=== PATIENT | male | born 1955 | race Caucasian/White ===

== ENCOUNTER 2023-08-02 11:45 | Outpatient (CLI) | payer MEDICARE, SELFPAY ==
--- OUTSIDE RECORDS SUMMARY | 2023-08-02 11:48 | XMS_ITS | Clinical Summary ---
Author Organization [employer] [facility] Address [place], [place] [address] Care Team Providers Care Refrigerator Assembler Name Role Phone Timothy Smith MD Primary Care Provider + Allergies No known active allergies Medications Medication Sig Dispensed Refills Start Date End Date Status oxyCODONE (ROXICODONE) 5 mg immediate release tabletIndications:Renal calculi Take 1 Tablet (5 mg) by mouth every 6 hours if needed for Pain. 10 Tablet 11/29/2020 Active ondansetron (ZOFRAN ODT) 4 mg disintegrating tabletIndications:Renal calculi Place 1 Tablet (4 mg) on the tongue every 8 hours if needed for Nausea/Vomiting . 12 Tablet 11/29/2020 Active Active Problems Problem Noted Date Diagnosed Date Unilateral inguinal hernia without obstruction o r gangrene 08/17/2015 Immunizations Name Administration Dates Next Due Tdap 12/08/2014 Family History Medical History Relation Name Comments Cancer Father prostate Diabetes Father Cancer Paternal Grandfather prostat e Diabetes Sister Relation Name Status Comments Father Paternal Grandfather Sister Social History Tobacco Use Types Packs/Day Years Used Date Smoking Tobacco: Never Smokeless Tobacco: Never Tobacco Cessation:Counseling Given: Yes Alcohol Use Standard Drinks/Week Comments Yes 0 (1 standard drink = 0.6 oz pur e alcohol) occasionally Sex and Gender Information Value Date Recorded Sex Assigned at Not on file Gender Identity Not on file Sexual Orientation Not on file Obstetrics History Last Filed Vital Signs Vital Sign Reading Time Taken Comments Blood Pressure 129/78 11/29/2020 2:30 PM CDT Pulse 60 11/29/2020 2:30 PM CDT Temperature 36.7 ??C (98 ??F) 11/29/2020 11:10 AM CDT Respiratory Rate 16 11/29/2020 11:10 AM CDT Oxygen Saturation 95% 11/29/2020 2:30 PM CDT Inhaled Oxygen Concentration - - Weight 69.9 kg (154 lb 3.2 oz) 11/29/2020 11:10 AM CDT Height 170.2 cm (5' 7) 11/29/2020 11:10 AM CDT Body Mass Index 24.15 11/29/2020 11:10 AM CDT Plan of Treatment Health Maintenance Due Date Last Done Comments Depression screening for age 12+ 1969 HIV for age 15-65 1972 Hepatitis C screening for age 18-79 08/07/1975 Colonoscopy through age 75 2002 Lipids for age 45-75 2002 Zoster (shingles) series for age 50+ (1 of 2) 08/07/2007 BMI (ht and wt on same day) for age 18+ 10/14/2016 0 10/15/2015, 08/17/2015 Pneumococcal series for age 65+ (1 of 1 - PCV) 2022 COVID-19 vaccine series (3 - 2022-24 season) 2022 07/09/2020, 06/10/2020 Influenza for age 65+ 11/05/2023 Tetanus booster 12/08/2024 12/08/2014 Tdap Completed 12/08/2014 Advance Directives Documents on File Type Date Recorded Patient Ply Splicer Expl anation Healthcare Directive 07/11/2018 12:00 AM 07/11/18 Care Teams Refrigerator Assembler Relationship Specialty Start Date End Date Timothy Smith MD [address] [place] [address] PCP - General 7/7/06
== END 2023-08-02 11:46 | disposition home or self-care (01) ==
PROVIDERS: PCP Family Medicine; Visit Provider Family Medicine
DX: Z12.5 Encounter for screening for malignant neoplasm of prostate (principal); R19.4 Change in bowel habit
CPT/HCPCS: 80048; 80061; 85025; G0103

== ENCOUNTER 2023-08-10 06:32 | Outpatient (CLI) | payer MEDICARE, SELFPAY ==
--- OUTSIDE RECORDS SUMMARY | 2023-08-10 06:35 | XMS_ITS | Data Portability ---
Author Organization [place] - [facility] Address [address] [place] [address] Care Team Providers Care Leadlighter Name Role Phone MARIO BANUELOS Referring Provider [phone] Assessment Encounter Date Assessment Date Assessment LastModified by Organization Details LastModified Time 12/04/2020 12/04/2020 65M with proxima l right ureteral stone. Outside imaging, labs, and notes from ED reviewed. Discussed trial of medical expulsive therapy versus surgical intervention with URS/HLL/poss stent. He expressed that he wishes to move forward with surgical intervention at this time, did not desire further medical expulsive trial. 1. Right proximal ureteral stone - schedule RIGHT URS/HLL/poss stent; risks and benefits of procedure discussed with pt and today - pt prefers to schedule in [place], but would consider other location if earlier appt available - Estefany to call to schedule - UA neg today - push fluids - refill of oxycodone and flomax today - ED return precautions reviewed (fever, uncontrolled pain, N/V) 2. Left nephrolithiasis - left stones currently non-obstructing, asymptomatic - continue to monitor - f/u with [facility] in 6 months 3. Family history of prostate Ca - PSA 1.5 in 2018 at [place] - recommend PSA check through PCP or at f/u urology visit given FHx [email or web address] Not available 12/04/2020 13:24:56 Plan of Treatment Reminders Order Date Submit Date Provider Last Modified By Organization Details Last Modified Time Details Appointments None recorded. Lab urinalysis, dipstick 2020 021 [email or web address] 2 Not available 11:41:17 Referral None recorded. Procedures None recorded. Surgeries None recorded. Imaging None recorded. Medication Orders oxycodone 5 mg tablet 2020 [email or web address] 2 [id number], [address] [place], [place], [phone], 13:14:33 tamsulosin 0.4 mg capsule 2020 YOHANNES [facility] #[id number], [address] [place], [place], [phone], 11:47:17 Patient TargetsNo targets recorded. Patient InstructionsNo instructions recorded. Reason for Referral None Reported. Results Created Date Observation Date Name Description Value Unit Range Abnormal Flag LastModifiedBy Organization Detail LastModifiedTime 12/04/2020 urina lysis , dipst ick pH-Status 5.5 Not Available [facility] [address], [place], [address], 12/04/2020 11:24:19 Result Notes None recorded. Medical Equipment None Reported. Medications Name Sig Start Date Stop Date Status Note LastModified by Organization Details LastModified Time tamsulosin 0.4 mg capsule TAKE 1 CAPSULE BY MOUTH EVERY DAY active Not Available Not Available No t Available ondansetron [address] 1 TABLET ON THE TONGUE EVERY 8 HOURS NEEDED FOR NAUSEA OR VOMITING active Not Available Not Available No t Available oxycodone 5 mg tablet TAKE 1 TABLET BY MOUTH EVERY 6 HOURS NEEDED active Not Available Not Available No t Available Vitals Date Recorded Body height Body mass index (BMI) Body weight Provider Name and Address Organization Details Last Updated DateTime 12/04/2020 170.18 cm 24.1 kg/m2 86527.22 g Sarah Mccormack [facility] 12/04/2020 11:22:53 Social History None recorded. Functional Status None recorded. Mental Status None recorded. Family History Relationship Description Onset Age of this Age Resolved Age Notes Father Family history of re nal stone Medical History Condition Response High Blood Pressure N Kidney Stones Y High Cholesterol N Diabetes N Past Encounters Encounter ID Performer Location Encounter Start Date Encounter Closed Date Diagnosis/Indication Diagnosis SNOMED-CT Code [id number] Siomara Kaiser PA-C [facility] [address] [place] [phone] 12/04/2020 10:51:27 12/09/2020 16:32:57 Kidney stone [id number] Health Concerns Section Related Observation LastModified by Organization Detai ls LastModified Time None Recorded Concern Status LastModified by Organization Details LastModified Time None Recorded Advance Directives Directive None Recorded Payers Encounter Date Sequence Insurance Name Policy Number Policy [place] Covered Member ID [place] Member ID Guarantor Name 12/04/2020 1 [employer] - INDIVIDUAL AND FAMILY (HMO) Ric Harris [id number] Ric Harris Notes Date Note Type Note Provider Name and Address Organization Details Recorded Time 12/04/2020 text/html HPI Notes: 65M w ith kidney stones. Previous h/o stones, required HLL/stent on left side in 2006 at [place] for 5mm proximal stone. Presented to [facility] ED on 11/29 with right flank pain, nausea, emesis. Cr 0.92, UA without infection, CT with 4mm proximal right ureteral stone and R hydro and non-obstructing left intrarenal stones. Seen by his PCP clinic on 12/03 due to ongoing pain, referred here. Right flank pain getting worse. Taking 3 tabs oxycodone daily plus tylenol. Some chills in the evenings, but temp at home 98.7F per pt . Denies further N/V. No dysuria or hematuria. UA today neg nit, neg leuk est, neg blood, 30 protein, 100 gluc PSA 12/27/17 ([place]) - 1.5 Labs: 11/29/20 Cr 0.92, WBC 7.3 11/29/20 UA >100 RBC, 0-2 WBC Imagin11/29/20 CT A/P: 4mm right proximal ureteral stone with hydro; additional nonobstructing left intrarenal stones PMH: denies other medical concerns PSH: denies any abdominal surgeries Soc: Occ: landscaping Tobacco: formerly (occasional cigar) EtOH: occasional FHx: father - nephrolithiasis PGF and father - prostate cancer, dad had surgery Siomara Kaiser PA-C [address], [place], [address], [facility] 12/04/2020 13:26:03
--- OUTSIDE RECORDS SUMMARY | 2023-08-10 06:35 | XMS_ITS | Clinical Summary ---
Author Organization [employer] & [facility] Address [place], [place] [address] Care Team Providers Care Box Maker Paperboard Name Role Phone Timothy Smith MD Primary [...] Comments Depression screening for age 12+ 1969 Hepatitis C screening for age 18-79 08/07/1975 [...] Documents on File Type Date Recorded Patient Consumer Marketing Analyst Expl anation Healthcare Directive 07/11/2018 12:00 AM 07/11/18 Care Teams Box Maker Paperboard Relationship Specialty Start Date End Date Timothy Smith MD [address] [place] [address] PCP - General 09/09/05
--- NOTE | 2023-08-10 08:02 | W.ANESCHARGE ---
Anesthesia Charges Start Date/Time Anesthesia Start Date: 08/10/23 Anesthesia Start Time: 07:28 Stop Date/Time Anesthesia Stop Date: 08/10/23 Anesthesia Stop Time: 08:01
--- NOTE | 2023-08-10 09:51 | W.ANESCHARGE ---
Anesthesia Charges Start Date/Time Anesthesia Start Date: 08/10/23 Anesthesia Start Time: 07:28 Stop Date/Time Anesthesia Stop Date: 08/10/23 Anesthesia Stop Time: 08:01
== END 2023-08-10 06:33 | disposition home or self-care (01) ==
PROVIDERS: PCP Family Medicine; Visit Provider Surgery
DX: R19.5 Other fecal abnormalities (principal); K63.5 Polyp of colon
CPT/HCPCS: 00811; 45385; 88305; J2704